=== PATIENT | female | born 1960 | race Caucasian/White ===

== ENCOUNTER 2022-05-27 03:58 | Emergency (ER) | payer MEDICARE, OTHER ==
[~2022-05-27] VITALS: Ht 149.8 cm; Wt 68.5 kg
[2022-05-27] MEDS ORDERED: ASPIRIN 81 MG CHEW (CHILDREN'S ASA) ONE (04:12)
--- NOTE | 2022-05-27 04:17 | ED Chest Pain ---
General Chief Complaint: Chest Pain Stated Complaint: CHEST PAIN/DOUBLE TROUBLE BREATHING History of Present Illness Date Seen by Provider: May 27, 2022 Time Seen by Provider: 04:15 Initial Comments 62-year-old female with PMH of CAD with history of 3-4 stents, CABG/DM2/CHF/anxiety, is here with complaints of chest pain which woke her up from sleep. Chest pain was associated with nausea and diaphoresis. Patient also had some SOB and lightheadedness along with the chest pain when it occurred. Initially the pain was 8/10, but now in the ER she does not have any pain at all nor does she have any other symptoms. Denies fever, palpitations, abdominal pain, vomiting, headache. Pt is not on baby aspirin at home, she takes Plavix at home. Pt is vaccinated for COVID. Allergies and Home Medications Allergies Coded Allergies: Znbtvub-CUH-AyW Reductase Inhibitor (Unverified Allergy, Mild, Nausea, 05/27/22) Patient Home Medication List Home Medication List Reviewed: Yes Alprazolam (Alprazolam) 0.5 Mg Tablet, 0.25 MG PO BID PRN, (Reported) Entered as Reported by: SULMA MANDUJANO on 05/27/22450 Last Action: New Order Clopidogrel Bisulfate (Clopidogrel) 75 Mg Tablet, 75 MG PO DAILY, (Reported) Entered as Reported by: SULMA MANDUJANO on 05/27/22450 Last Action: New Order Evolocumab (Repatha Sureclick) 140 Mg/Ml Pen.injctr, (Reported) Entered as Reported by: SULMA MANDUJANO on 05/27/22450 Last Action: Edited Furosemide (Furosemide) 20 Mg Tablet, 20 MG PO DAILY, (Reported) Entered as Reported by: SULMA MANDUJANO on 05/27/22450 Last Action: New Order Metformin HCl (Metformin HCl ER) 500 Mg Tab.er.24h, 1,000 MG PO BID, (Reported) Entered as Reported by: SULMA MANDUJANO on 05/27/22450 Last Action: New Order Nebivolol HCl (Nebivolol HCl) 2.5 Mg Tablet, 2.5 MG PO DAILY, (Reported) Entered as Reported by: SULMA MANDUJANO on 05/27/22450 Last Action: New Order Review of Systems Review of Systems Constitutional: no symptoms reported, diaphoresis EENTM: No Symptoms Reported Respiratory: No Symptoms Reported Cardiovascular: Chest Pain Gastrointestinal: Nausea Genitourinary: No Symptoms Reported Musculoskeletal: no symptoms reported Skin: no symptoms reported Psychiatric/Neurological: No Symptoms Reported Endocrine: No Symptoms Reported Hematologic/Lymphatic: No Symptoms Reported Physical Exam Vital Signs Vital Signs - First Documented Capillary Refill : Height, Weight, BMI Height: '" Weight: lbs. oz. kg; BMI Method: General Appearance: No Apparent Distress, WD/WN HEENT: PERRL/EOMI Neck: Full Range of Motion Respiratory: Chest Non Tender, Lungs Clear, Normal Breath Sounds, No Accessory Muscle Use Cardiovascular: Regular Rate, Rhythm, No Edema Gastrointestinal: Normal Bowel Sounds, Non Tender, Soft Neurologic/Psychiatric: Alert, Oriented x3, No Motor/Sensory Deficits, Normal Mood/Affect Skin: Normal Color Lymphatic: No Adenopathy Progress/Results/Core Measures Results/Orders Lab Results Laboratory Tests Test 05/27/22 04:14 05/27/22 04:38 05/27/22 05:00 05/27/22 05:20 Range/Units White Blood Count 9.1 4.3-11.0 10^3/uL Red Blood Count 3.91 3.80-5.11 10^6/uL Hemoglobin 12.9 11.5-16.0 g/dL Hematocrit 38 35-52 % Mean Corpuscular Volume 98 80-99 fL Mean Corpuscular Hemoglobin 33 25-34 pg Mean Corpuscular Hemoglobin Concent 34 32-36 g/dL Red Cell Distribution Width 14.0 10.0-14.5 % Platelet Count 169 130-400 10^3/uL Mean Platelet Volume 9.8 9.0-12.2 fL Immature Granulocyte % (Auto) 0 % Neutrophils (%) (Auto) 60 42-75 % Lymphocytes (%) (Auto) 31 12-44 % Monocytes (%) (Auto) 7 0-12 % Eosinophils (%) (Auto) 1 0-10 % Basophils (%) (Auto) 0 0-10 % Neutrophils # (Auto) 5.5 1.8-7.8 10^3/uL Lymphocytes # (Auto) 2.8 1.0-4.0 10^3/uL Monocytes # (Auto) 0.7 0.0-1.0 10^3/uL Eosinophils # (Auto) 0.1 0.0-0.3 10^3/uL Basophils # (Auto) 0.0 0.0-0.1 10^3/uL Immature Granulocyte # (Auto) 0.0 0.0-0.1 10^3/uL Prothrombin Time 11.8 L 12.2-14.7 SEC INR Comment 0.8 0.8-1.4 Activated Partial Thromboplast Time 27 24-35 SEC D-Dimer 0.40 0.00-0.49 UG/ML Sodium Level 134 L 135-145 MMOL/L Potassium Level 3.8 3.6-5.0 MMOL/L Chloride Level 96 L 98-107 MMOL/L Carbon Dioxide Level 28 21-32 MMOL/L Anion Gap 10 5-14 MMOL/L Blood Urea Nitrogen 9 7-18 MG/DL Creatinine 0.93 0.60-1.30 MG/DL Estimat Glomerular Filtration Rate 69 BUN/Creatinine Ratio 10 Glucose Level 205 H 70-105 MG/DL Calcium Level 9.1 8.5-10.1 MG/DL Corrected Calcium 9.3 8.5-10.1 MG/DL Magnesium Level 1.7 1.6-2.4 MG/DL Total Bilirubin 0.2 0.1-1.0 MG/DL Aspartate Amino Transf (AST/SGOT) 29 5-34 U/L Alanine Aminotransferase (ALT/SGPT) 13 0-55 U/L Alkaline Phosphatase 89 40-136 U/L Troponin I 0.73 *H 0.78 *H <0.30 NG/ML Pro-B-Type Natriuretic Peptide 1817.0 H <125.0 PG/ML Total Protein 6.3 L 6.4-8.2 GM/DL Albumin 3.8 3.2-4.5 GM/DL Serum Alcohol < 10 <10 MG/DL Influenza Type A (RT-PCR) Not Detected Not Detecte Influenza Type B (RT-PCR) Not Detected Not Detecte SARS-CoV-2 RNA (RT-PCR) Not Detected Not Detecte Urine Color YELLOW Urine Clarity CLEAR Urine pH 6.0 5-9 Urine Specific [place] 1.010 L 1.016-1.022 Urine Protein NEGATIVE NEGATIVE Urine Glucose (UA) NEGATIVE NEGATIVE Urine Ketones NEGATIVE NEGATIVE Urine Nitrite NEGATIVE NEGATIVE Urine Bilirubin NEGATIVE NEGATIVE Urine Urobilinogen 0.2 < = 1.0 MG/DL Urine Leukocyte Esterase NEGATIVE NEGATIVE Urine RBC (Auto) NEGATIVE NEGATIVE Urine RBC NONE /HPF Urine WBC 0-2 /HPF Urine Squamous Epithelial Cells 0-2 /HPF Urine Crystals NONE /LPF Urine Bacteria NEGATIVE /HPF Urine Casts PRESENT /LPF Urine Hyaline Casts 5-10 H /LPF Urine Mucus SMALL H /LPF Urine Culture Indicated NO Urine Opiates Screen NEGATIVE NEGATIVE Urine Oxycodone Screen NEGATIVE NEGATIVE Urine Methadone Screen NEGATIVE NEGATIVE Urine Propoxyphene Screen NEGATIVE NEGATIVE Urine Barbiturates Screen NEGATIVE NEGATIVE Ur Tricyclic Antidepressants Screen NEGATIVE NEGATIVE Urine Phencyclidine Screen NEGATIVE NEGATIVE Urine Amphetamines Screen NEGATIVE NEGATIVE Urine Methamphetamines Screen NEGATIVE NEGATIVE Urine Benzodiazepines Screen POSITIVE H NEGATIVE Urine Cocaine Screen NEGATIVE NEGATIVE Urine Cannabinoids Screen NEGATIVE NEGATIVE My Orders Orders - CA PATTEN MD Ekg Tracing (05/27/22 04:06) Aspirin Chewable Tablet (Baby Aspirin Ch (05/27/22 04:12) Cbc With Automated Diff (05/27/22 04:17) Magnesium (05/27/22 04:17) Comprehensive Metabolic Panel (05/27/22 04:17) Protime With Inr (05/27/22 04:17) Partial Thromboplastin Time (05/27/22 04:17) O2 (05/27/22 04:17) Monitor-Rhythm Ecg Trace Only (05/27/22 04:17) Aspirin Chewable Tablet (Baby Aspirin Ch (05/27/22 04:30) Ed Iv/Invasive Line Start (05/27/22 04:17) Fibrin Degradation Products (05/27/22 04:17) Troponin I Fs (05/27/22 04:17) Probnp Fs (05/27/22 04:17) Chest 1 View Ap/Pa Only (05/27/22 04:19) Alcohol (05/27/22 04:20) Drug Screen Stat (Urine) (05/27/22 04:20) Ua Culture If Indicated (05/27/22 04:20) Covid 19 Inhouse Test (05/27/22 04:20) Influenza A And B By Pcr (05/27/22 04:20) Troponin I Fs (05/27/22 05:16) Ekg Tracing (05/27/22 05:16) Medications Given in ED Current Medications Medications Dose Ordered Sig/Chapo Route Start Time Stop Time Status Last Admin Dose Admin Aspirin 81 mg STK-MED ONCE .ROUTE 05/27/22 04:12 05/27/22 04:16 DC 05/27/22 04:05 324 MG Vital Signs/I&O 05/27/22 05/27/22 04:00 04:00 Temp 36.4 Pulse 87 Resp 21 B/P (MAP) 127/51 (76) Pulse Ox 93 93 O2 Delivery Room Air Room Air Progress Progress Note : Progress Note 1. ACS RULE OUT: - CXR:unremarkable - Troponin is 0.74, then 7.8 - EKG x 2 : non-ischemic - CBC/ CMP - UA/ UDS - BNP: 1,817 - D-dimer normal - ASA 324mg STAT - No chest pain at all while in ER - Pt refuses admission because she does not have any chest pain at this time and she does not want to go to [place]. Pt states if she gets chest pain again she will go straight to . Risks and benefits explained and pt wants to go home. Pt has Nitro at home and knows how to use it. - Pt's monument letterer is Dr Wright at and has an appointment on Wednesday - Pt's PCP is Dr Ren and is supposed to have an appt today with her PCP - Initial ECG Impression Date: May 27, 2022 Initial ECG Impression Time: 04:05 Initial ECG Rate: 86 Initial ECG Rhythm: Normal Sinus Initial ECG Intervals: Normal Initial ECG Impression: Nonspecific Changes EKG : EKG Time: 05:25 Rate: 70 Rhythm: Normal Sinus Intervals: Normal ECG Impression: Nonspecific Changes Diagnostic Imaging Diagonstic Imaging: Xray Plain Films/CT/US/NM/MRI: chest Departure Impression Primary Impression: Chest pain Qualified Codes: R07.9 - Chest pain, unspecified Disposition: HOME, SELF-CARE Condition: Stable Departure-Patient Inst. Referrals: NO,LOCAL PHYSICIAN (PCP/Family) Primary Care Physician Patient Instructions: Troponin Test, Chest Pain, Adult ED Add. Discharge Instructions: - No chest pain at all while in ER - Pt refuses admission because she does not have any chest pain at this time a - Pt's monument letterer is Dr Wright at and has an appointment on Wednesday - Pt's PCP is Dr Ren and is supposed to have an appt today with her PCP - Keep all appointments All discharge instructions reviewed with patient and/or family. Voiced understanding. CA PATTEN MD May 27, 2022 04:17
[2022-05-27] MEDS ORDERED: ASPIRIN 81 MG CHEW (CHILDREN'S ASA) PO ONE (04:30)
[2022-05-27 04:33] LABS: BASOPHILS % (AUTO) 0 % (0-10); EOSINOPHILS # (AUTO) 0.1 10^3/uL (0.0-0.3); EOSINOPHILS % (AUTO) 1 % (0-10); HEMATOCRIT 38 % (35-52); HEMOGLOBIN 12.9 g/dL (11.5-16.0); LYMPHOCYTES # (AUTO) 2.8 10^3/uL (1.0-4.0); LYMPHOCYTES % (AUTO) 31 % (12-44); MEAN CORPUSCULAR HEMOGLOBIN 33 pg (25-34); MEAN CORPUSCULAR HGB CONC 34 g/dL (32-36); MEAN CORPUSCULAR VOLUME 98 fL (80-99); MEAN PLATELET VOLUME 9.8 fL (9.0-12.2); MONOCYTES # (AUTO) 0.7 10^3/uL (0.0-1.0); MONOCYTES % (AUTO) 7 % (0-12); NEUTROPHILS # (AUTO) 5.5 10^3/uL (1.8-7.8); NEUTROPHILS % (AUTO) 60 % (42-75); PLATELET COUNT 169 10^3/uL (130-400); WHITE BLOOD COUNT 9.1 10^3/uL (4.3-11.0)
[2022-05-27] MEDS ORDERED: NEBI2.5T6 PO (04:51)
[2022-05-27] MEDS ORDERED: EVOL140P3 (04:51)
[2022-05-27] MEDS ORDERED: METF-865 PO (04:51)
[2022-05-27] MEDS ORDERED: ALPR0.5T7 PO (04:51)
[2022-05-27] MEDS ORDERED: CLOP75TA28 PO (04:51)
[2022-05-27] MEDS ORDERED: FURO20TA4 PO (04:51)
[2022-05-27 05:08] LABS: INR 0.8 (0.8-1.4); PROTHROMBIN TIME PATIENT 11.8 SEC (12.2-14.7)
[2022-05-27 05:09] LABS: POTASSIUM 3.8 MMOL/L (3.6-5.0)
[2022-05-27 05:10] LABS: ALBUMIN 3.8 GM/DL (3.2-4.5); BILIRUBIN,TOTAL 0.2 MG/DL (0.1-1.0); CALCIUM 9.1 MG/DL (8.5-10.1); MAGNESIUM 1.7 MG/DL (1.6-2.4); TOTAL PROTEIN 6.3 GM/DL (6.4-8.2)
[2022-05-27 05:11] LABS: CREATININE SERUM 0.93 MG/DL (0.60-1.30)
[2022-05-27 05:25] LABS: BILIRUBIN,URINE NEGATIVE (NEGATIVE); CLARITY,URINE CLEAR; COLOR,URINE YELLOW; GLUCOSE, URINE (UA) NEGATIVE (NEGATIVE); KETONES,URINE NEGATIVE (NEGATIVE); LEUKOCYTE ESTERASE ,URINE NEGATIVE (NEGATIVE); NITRITE,URINE NEGATIVE (NEGATIVE); PROTEIN,URINE NEGATIVE (NEGATIVE)
[2022-05-27 05:33] LABS: BACTERIA,URINE NEGATIVE /HPF; SQUAMOUS EPITHELIAL CELL,UR 0-2 /HPF; WBC,URINE 0-2 /HPF
[2022-05-27 05:35] LABS: AMPHETAMINE SCREEN, URINE NEGATIVE (NEGATIVE); BARBITURATE SCREEN URINE NEGATIVE (NEGATIVE); BENZODIAZEPINES SCREEN URINE POSITIVE (NEGATIVE); CANNABINOID SCREEN, URINE NEGATIVE (NEGATIVE); COCAINE SCREEN URINE NEGATIVE (NEGATIVE); METHADONE STAT NEGATIVE (NEGATIVE); OPIATE SCREEN URINE NEGATIVE (NEGATIVE); OXYCODONE STAT NEGATIVE (NEGATIVE); PROPOXYPHENE STAT NEGATIVE (NEGATIVE); TRICYCLIC ANTIDEPRESSANTS SCRE NEGATIVE (NEGATIVE)
[2022-05-27 06:20] VITALS: BP 116/54
--- NOTE | 2022-05-27 07:00 | Diagnostic Imaging Report ---
Indication: Chest pain, shortness of breath Frontal chest obtained at 0425 a.m. Heart is normal in size. Patient's had previous sternotomy. The lungs show no focal infiltrate. There is mild central vascular congestion. There is no pneumothorax or pleural fluid. IMPRESSION: Postoperative changes with mild central vascular congestion. No consolidation or pneumothorax or pleural fluid. Dictated by: Dictated on workstation # [id number]
== END 2022-05-27 06:20 | disposition home or self-care (01) ==
LOC: ER FS 04:07
DX: R07.9 Chest pain, unspecified (principal); I25.10 Atherosclerotic heart disease of native coronary artery without angina pectoris; Z95.5 Presence of coronary angioplasty implant and graft; Z95.1 Presence of aortocoronary bypass graft; Z20.822 Contact with and (suspected) exposure to COVID-19; Z79.02 Long term (current) use of antithrombotics/antiplatelets
CPT/HCPCS: 36415; 71045; 80053; 80306; 81000; 83735; 83880; 84484; 85025; 85379; 85610; 85730; 87636; 93005; 93041; 99284; G0480; 80320

== ENCOUNTER → 2023-06-10 | Outpatient (CLI) | payer MEDICARE, OTHER ==
[~2023-06-10] VITALS: Ht 149.9 cm; Wt 68.2 kg
[~2023-06-10] MED LIST: ALPR0.5T7 PO; CLOP75TA28 PO; EVOL140P3; FURO20TA4 PO; LIDOCAINE 1% INJ 10 ML VIAL INJ ONE; LIDOCAINE 1% INJ 10 ML VIAL ONE; METF-865 PO; NEBI2.5T6 PO
--- NOTE | 2023-06-10 15:04 | Diagnostic Imaging Report ---
INDICATION: Left breast calcifications. PROCEDURE: The patient presents for stereotactic biopsy. The patient was brought to the stereotactic suite, placed in a chair in a sitting upright position. The left breast was positioned lateral medial. Stereotactic and tomographic imaging was then performed. The cluster of microcalcifications in the upper outer left breast were then stereotactically targeted. All images were viewed on a dedicated workstation. Lateral left breast was then prepped and draped in the usual sterile fashion. A small amount of 1% lidocaine was utilized for local anesthesia. The 8 gauge vacuum-assisted needle was advanced and placed per stereotactic coordinates. Additional lidocaine was administered. Four core biopsies with the 8 gauge vacuum-assisted needle were then obtained. Specimen radiograph was obtained demonstrating numerous calcifications within the sample labeled #4. Marker clip was then deployed. The needle was removed and hemostasis was obtained. The patient was then sent for a 2D CC and lateral medial mammogram on dedicated mammographic equipment to evaluate clip placement. Mammographic images demonstrate a clip in the upper outer left breast. IMPRESSION: Successful stereotactic biopsy of the cluster of microcalcifications in the upper outer left breast with the vacuum-assisted device. Pathology results are currently pending. Dictated by: Dictated on workstation # [id number]
== END ==
LOC: RAD 13:00
PROVIDERS: ATTEND Internal Medicine Hematology & Oncology
DX: R92.0 Mammographic microcalcification found on diagnostic imaging of breast (principal); R92.8 Other abnormal and inconclusive findings on diagnostic imaging of breast
CPT/HCPCS: 19081; A4648

== ENCOUNTER → 2023-06-10 | Outpatient (CLI) | payer MEDICARE, OTHER ==
[~2023-06-10] VITALS: Ht 149.9 cm; Wt 68.2 kg
[~2023-06-10] MED LIST changes: -LIDOCAINE 1% INJ 10 ML VIAL ONE
--- NOTE | 2023-06-10 16:50 | Diagnostic Imaging Report ---
INDICATION: Right breast nodule. Patient presents for ultrasound-guided biopsy. DETAILS OF THE PROCEDURE: The patient was brought to the sonographic suite and placed on the table in the supine position. Ultrasound imaging of the right breast was performed to evaluate for an appropriate entry site. The right breast was then prepped and draped in the usual sterile fashion. A small amount of 1% lidocaine was utilized for local anesthesia. Multiple core biopsies of the nodule at the 6:30 location of the right breast were obtained utilizing a hand held 13-gauge vacuum-assisted mammotome device. A marker clip was then deployed and hemostasis was obtained using manual compression. The patient tolerated the procedure well and was sent for a post procedure mammogram in satisfactory condition. IMPRESSION: Successful ultrasound-guided biopsy of the nodule at the 6:30 location of the right breast utilizing a hand-held vacuum-assisted mammotome device. Pathology results are currently pending. Dictated by: Dictated on workstation # [id number]
--- NOTE | 2023-06-11 09:14 | Diagnostic Imaging Report ---
Indication: Status post ultrasound-guided right breast biopsy. Unilateral right 2-D, CC and ML mammography was performed after patient underwent ultrasound-guided biopsy. There is a marker clip in the lower inner right breast. The right breast is heterogeneously dense. There are benign calcifications. Right axilla is unremarkable. IMPRESSION: Marker clip placement, as described. Dictated by: Dictated on workstation # [id number]
== END ==
LOC: RAD 13:01
PROVIDERS: ATTEND Internal Medicine Hematology & Oncology
DX: N63.13 Unspecified lump in the right breast, lower outer quadrant (principal); R92.8 Other abnormal and inconclusive findings on diagnostic imaging of breast
CPT/HCPCS: 19083

== ENCOUNTER 2023-06-16 12:49 | Outpatient (RCR) | payer MEDICARE, OTHER ==
[~2023-06-16 12:49] MED LIST changes: -LIDOCAINE 1% INJ 10 ML VIAL INJ ONE
[2023-07-07] MEDS ORDERED: AMOX500T2 PO (15:54)
== END 2023-06-22 | disposition home or self-care (01) ==
LOC: ONC 12:49
PROVIDERS: ATTEND Internal Medicine Hematology & Oncology
DX: R92.8 Other abnormal and inconclusive findings on diagnostic imaging of breast (principal); J44.9 Chronic obstructive pulmonary disease, unspecified; K21.9 Gastro-esophageal reflux disease without esophagitis; Z78.0 Asymptomatic menopausal state; Z72.0 Tobacco use
CPT/HCPCS: 99214

== ENCOUNTER → 2023-07-02 | Outpatient (CLI) | payer MEDICARE ==
[~2023-07-02] MED LIST changes: +AMOX500T2 PO
[2023-07-02 16:58] LABS: BILIRUBIN,TOTAL 0.4 MG/DL (0.1-1.0); CALCIUM 8.8 MG/DL (8.5-10.1); CREATININE SERUM 0.83 MG/DL (0.60-1.30); POTASSIUM 4.3 MMOL/L (3.6-5.0); TOTAL PROTEIN 6.5 GM/DL (6.4-8.2)
== END ==
LOC: LAB 15:37
PROVIDERS: ATTEND Internal Medicine Cardiovascular Disease
DX: I10 Essential (primary) hypertension (principal); I25.10 Atherosclerotic heart disease of native coronary artery without angina pectoris; I65.23 Occlusion and stenosis of bilateral carotid arteries; I73.9 Peripheral vascular disease, unspecified; E78.2 Mixed hyperlipidemia; R07.2 Precordial pain
CPT/HCPCS: 36415; 80053; 80061

== ENCOUNTER → 2023-07-07 | Emergency (ER) | payer MEDICARE, OTHER ==
[~2023-07-07] VITALS: Ht 147 cm; Wt 70.0 kg
[2023-07-07 15:06] VITALS: BP 165/83
--- NOTE | 2023-07-07 15:18 | ED EENT ---
History of Present Illness General Chief Complaint: Oral/Throat Problems Stated Complaint: HARD TO SWALLOW,SORE THROAT Nursing Triage Note: SORE THROAT X 1 WEEK, PT AMB TO [facility]3. NO OTHER C/O RESP SYMPTOMS Source: patient Exam Limitations: no limitations History of Present Illness Date Seen by Provider: Jul 07, 2023 Time Seen by Provider: 15:15 Initial Comments Patient is a 63-year-old female presents ED with sore throat. Sore throat started about 1 week ago. She noted some pain to the left side of neck with a swollen nodule. She states over the past 2 days she has had pain with swallowing. She does report some nasal congestion with a history of allergies. She denies of any fever vomiting diarrhea shortness of breath, cough, fever. She states she has been taking medication to help with the pain and gets relief for about 10 minutes. She cannot recall the medication. She denies history of enlarged thyroid. She denies any stridor or wheezing. She does have a history of smoking. Patient denies any dental pain. Patient tolerated secretions. Allergies and Home Medications Allergies Coded Allergies: Wmqhfnv-IDT-WtJ Reductase Inhibitor (Unverified Allergy, Mild, Nausea, 05/27/22) Patient Home Medication List Home Medication List Reviewed: Yes Alprazolam (Alprazolam) 0.5 Mg Tablet, 0.25 MG PO BID PRN, (Reported) Entered as Reported by: SULMA MANDUJANO on 05/27/22450 Amoxicillin (Amoxicillin) 500 Mg Tablet, 500 MG PO BID Prescribed by: GRETEL CHISHOLM on 07/07/23 1554 Clopidogrel Bisulfate (Clopidogrel) 75 Mg Tablet, 75 MG PO DAILY, (Reported) Entered as Reported by: SULMA MANDUJANO on 05/27/22450 Evolocumab (Repatha Sureclick) 140 Mg/Ml Pen.injctr, (Reported) Entered as Reported by: SULMA MANDUJANO on 05/27/22450 Furosemide (Furosemide) 20 Mg Tablet, 20 MG PO DAILY, (Reported) Entered as Reported by: SULMA MANDUJANO on 05/27/22450 Metformin HCl (Metformin HCl ER) 500 Mg Tab.er.24h, 1,000 MG PO BID, (Reported) Entered as Reported by: SULMA MANDUJANO on 05/27/22450 Nebivolol HCl (Nebivolol HCl) 2.5 Mg Tablet, 2.5 MG PO DAILY, (Reported) Entered as Reported by: SULMA MANDUJANO on 05/27/22450 Review of Systems Review of Systems Constitutional: No chills, No diaphoresis, No malaise, No weakness Eyes: Denies Drainage, Denies Decreased Acuity Ears: Denies Dizziness, Denies Pain Nose: denies clots, denies congestion Throat: pain; denies swelling, denies neck stiffness, denies hoarse, denies painful swallowing, denies difficulty with fluids Respiratory: No cough, No dyspnea on exertion Cardiovascular: No chest pain Gastrointestinal: No abdominal pain, No constipation, No diarrhea, No nausea, No vomiting Musculoskeletal: No back pain Skin: No change in color, No change in hair/nails Past Owimzno-Zledgq-Xvjurp Hx Immunizations Up To Date Influenza Vaccine Up-to-Date: No; Not Current First/Initial COVID19 Vaccinat: 10/18/2020 Second COVID19 Vaccination Catarino: 11/12/2020 Third COVID19 Vaccination Date: 07/09/2021 Past Medical History Surgery/Hospitalization HX: Multiple stents: 3 heart/ in legs also, Hyperlipidemia, CABG 3 vessel, Partial Hysterectomy, CHF, CAD, HTN, DM Type II, Anxiety, Fatty Liver, Tobaccoism Physical Exam Vital Signs Vital Signs - First Documented 07/07/23 07/07/23 15:06 15:10 Temp 36.4 Pulse 62 Resp 24 B/P (MAP) 165/83 (110) Pulse Ox 98 O2 Delivery Room Air O2 Flow Rate 98.00 Height, Weight, BMI Height: '" Weight: lbs. oz. kg; 32.00 BMI Method: General Appearance: WD/WN, no apparent distress Eyes: bilateral eye normal inspection, bilateral eye PERRL, bilateral eye EOMI Ears: bilateral ear auricle normal, bilateral ear canal normal, bilateral ear TM normal Nose: normal inspection Mouth/Throat: normal mouth inspection, pharynx normal, other ([place] appearance oropharynx) Neck: non-tender, full range of motion, other (Left submandibular lymphadenopathy. Oropharynx pain without erythema, swelling, exudate. No stridor. No thyroid tenderness. No dental tenderness.) Cardiovascular: regular rate, rhythm, no edema, no gallop, no JVD Respiratory: chest non-tender, lungs clear, normal breath sounds, no respiratory distress Gastrointestinal: normal bowel sounds, non tender, no organomegaly Neurologic/Psychiatric: senior policy associate II-XII nml as tested, no motor/sensory deficits, alert, normal mood/affect Skin: normal color, warm/dry Progress/Results/Core Measures Results/Orders Lab Results Laboratory Tests Test 07/07/23 15:20 Range/Units Group A Streptococcus Screen Not Detected NotDetected My Orders Orders - ALEXYS CREWS Rapid Strep A Screen (07/07/23 15:15) Vital Signs/I&O 07/07/23 07/07/23 15:06 15:10 Temp 36.4 Pulse 62 Resp 24 B/P (MAP) 165/83 (110) Pulse Ox 98 O2 Delivery Room Air O2 Flow Rate 98.00 Blood Pressure Mean: 110 Departure Communication (PCP) Patient with sore throat difficulty swallowing for the past week. On exam she has left submandibular cervical LAD lymphadenopathy. She is tolerating secretions. No stridor. Denies of any injury. No evidence of Torin angina. No evidence of bruit on exam. No evidence of thyroid megaly on palpation. Oropharynx without significant redness swelling or exudate. She does report nasal congestion and sinus drainage. On exam she does have cobblestoning with a postnasal drip which is likely associated with her symptoms. Did swab her for strep which was negative. Since she is tolerating secretions without difficulty no airway compromise CT scan of the neck was held at this time. Due to length of symptoms and lymphadenitis will discharge with amoxicillin. Suggest at this time using Flonase, Mucinex with the postnasal drip. Suggest follow-up your PCP in 2 to 3 days for reevaluation. If difficulty tolerating secretions, wheezing, swelling or redness of the neck to return back to ED. Impression Primary Impression: Pharyngitis Disposition: HOME, SELF-CARE Condition: Stable Departure-Patient Inst. Decision time for Depature: 15:24 Referrals: PINA GIL DO (PCP/Family) Primary Care Physician Patient Instructions: Sore Throat, Adult (DC) Add. Discharge Instructions: At this time recommend Mucinex, nasal spray. Take amoxicillin as prescribed. If any worsening symptoms return back to ED such as difficulty breathing, difficulty tolerating secretions. All discharge instructions reviewed with patient and/or family. Voiced understanding. Scripts Amoxicillin (Amoxicillin) 500 Mg Tablet 500 MG PO BID for 10 Days, #20 TAB Prov: ALEXYS CREWS 07/07/23 ALEXYS CREWS Jul 07, 2023 15:18
== END ==
LOC: EDUNIT# 14:51 → ER 14:55
DX: J02.9 Acute pharyngitis, unspecified (principal); R59.1 Generalized enlarged lymph nodes; Z87.891 Personal history of nicotine dependence
CPT/HCPCS: 87430; 99282